=== PATIENT | male | born 2000 | race Caucasian/White ===

== ENCOUNTER 2024-04-22 13:16 | Emergency (ER) | payer OTHER ==
[2024-04-22 13:23] VITALS: BMI 16.6
[2024-04-22 14:40] LABS: BASO % 0.2 % (0-2.0); EOS % 0.6 % (0-4.5); HEMATOCRIT 45.2 % (35.4-49); HEMOGLOBIN 15.3 GM/dL (11.7-16.9); LYMPH % 15.6 % (8-40); MCH 30.5 pg (25.7-33.7); MCHC 33.9 g/dl (32.0-35.9); MEAN CELL VOLUME 89.8 fl (80-96); MEAN PLT VOLUME 10.7 fl (7.5-11.1); MONO % 6.1 % (3.8-10.2); NEUT % 77.5 % (42.8-82.8); PLATELET COUNT 177 10^3/uL (134-434); RBC 5.03 M/mm3 (4.00-5.60); RDW 13.1 % (11.9-15.9); WHITE BLOOD COUNT 6.3 K/mm3 (4.0-10.0)
[2024-04-22 14:56] LABS: POTASSIUM 5.2 mmol/L (3.5-5.1)
[2024-04-22 14:57] LABS: CALCIUM 9.3 mg/dL (8.5-10.1)
[2024-04-22 14:58] LABS: BLOOD UREA NITROGEN 21.3 mg/dL (7-18)
[2024-04-22 15:03] LABS: TOT PROT 7.4 g/dl (6.4-8.2)
[2024-04-22 17:24] VITALS: BP 117/62; PULSE 72; RESP 18; TEMP 98.2
== END 2024-04-22 17:24 | disposition home or self-care (01) ==
LOC: JER 13:16
DX: R55 Syncope and collapse (principal); R42 Dizziness and giddiness; R20.0 Anesthesia of skin; R20.2 Paresthesia of skin
CPT/HCPCS: 36415; 80053; 85025; 93005; 93010; 99284-25